=== PATIENT | male | born 1940 | race Hispanic/Latino ===

== ENCOUNTER 2016-11-09 07:07 | Day surgery (SDC) | payer BC, MEDICARE ==
[2016-11-02 14:35] VITALS: BMI 30.1
--- NOTE | 2016-11-07 04:13 | HP ---
REASON FOR ADMISSION: Left heart cath with possible angioplasty. Abnormal stress test dated 10/29/2014. BRIEF CLINICAL HISTORY: This is a 74-year-old male with past medical history significant for CVA, hypertension, had abnormal stress test dated 10/14/2016 and scheduled elective cardiac cath with possible angioplasty. PAST MEDICAL HISTORY: Significant for hypertension, hyperlipidemia, lung CA in the past, history of coronary artery disease, status post PTCA of RCA with FRANCHESCA on 10/29/2014. PREVIOUS CARDIAC WORKUP: As follows; the patient had a stress test on 10/14/2016 that was Lexiscan that showed technical difficult studies, SPECT scan, myocardial perfusion study, ejection fraction reported as 60% fixed inferior defect probably secondary to diaphragmatic attenuation or previous injury. Partially reversible apical defect suggestive of ischemia. In comparison to the last study dated 10/10/2014, apical defect appears more prominent, and the inferior defect appears more fixed in the current study. The patient had a cardiac catheterization on 10/10/2014 with a cardiac catheterization and subsequently PTCA of RCA was done; 80% stenosis noted in the RCA at that time; circumflex had 50% stenosis, LAD with 50% stenosis, and preserved LV function ejection fraction of 65%. CURRENT MEDICATION: The patient is taking hydrochlorothiazide, amlodipine, potassium chloride, Zetia, clopidogrel, aspirin, and simvastatin 20 mg daily. ALLERGIES: NO KNOWN DRUG ALLERGIES. REVIEW OF SYSTEMS: As per HPI. PHYSICAL EXAMINATION: VITAL SIGNS: As follows; temperature afebrile, heart rate 60, and blood pressure 140/80. HEENT: PERRLA. Extraocular muscles intact. NECK: Supple. No carotid bruits. No thyromegaly. CHEST: Clear to auscultation. HEART: S1 and S2 regular. ABDOMEN: Soft. EXTREMITIES: Clubbing and cyanosis negative. LABORATORY DATA: EKG normal sinus. Blood workup pending. IMPRESSION: History of percutaneous transluminal coronary angioplasty of right coronary artery on 10/29/2014, abnormal stress test, inferior wall ischemia, hypertension, hyperlipidemia, and diabetes. RECOMMENDATIONS: We will do cardiac cath. We will load with Plavix and aspirin. We will do the basic blood workup. If blood workup has been normal and renal function is stable, we will proceed for cardiac catheterization. Further recommendation after cardiac catheterization. Arleth Zamora MD
[2016-11-09] MEDS ORDERED: Midazolam 2 MG/2 ML VIAL ONE (07:37)
[2016-11-09] MEDS ORDERED: Iodixanol 320 MG/ML 200 ML BOTTLE IV ONE (07:38)
[2016-11-09] MEDS ORDERED: Nitroglycerin 50mg in D5W 50 MG/250 ML BOTTLE IV ONE (07:38)
[2016-11-09 08:07] VITALS: O2SAT 97
[2016-11-09 08:18] LABS: BASO # 0.02 K/mm3 (0.0-2.0); BASO % 0.3 % (0.0-3.0); EOS # 0.1 (0.0-0.7); EOS % 0.8 % (1.5-5.0); GRAN # 2.87 (1.4-6.5); GRAN % 47.6 % (50.0-68.0); HEMATOCRIT 39.9 % (42.0-52.0); LYMPH # 2.3 (1.2-3.4); LYMPH % 37.5 % (22.0-35.0); MEAN CELL VOLUME 89.5 fl (80.0-105.0); MEAN CORPUSCULAR HGB CONC 33.6 g/dl (31.0-37.0); MEAN PLATELET VOLUME 10.9 fl (7.0-11.0); MONO # 0.8 (0.1-0.6); MONO % 13.8 % (1.0-6.0); RED CELL DISTRIBUTION WIDTH 13.9 % (11.5-14.5)
[2016-11-09 08:19] LABS: BLOOD UREA NITROGEN 17 mg/dL (7-21); CALCIUM 9.5 mg/dL (8.4-10.5); CARBON DIOXIDE 33 mmol/L (21-33); CHLORIDE 99 mmol/L (98-107); CHOLESTEROL 145 mg/dL (130-200); GFR AFRICAN-AMERICAN > 60; GLUCOSE,RANDOM 116 mg/dL (70-110); SODIUM 143 mmol/L (132-148)
[2016-11-09 08:25] LABS: INR 1.03 (0.93-1.08); PARTIAL THROMBOPLASTIN TIME 28.1 Seconds (23.7-30.8)
[2016-11-09] MEDS ORDERED: Iohexol 350mgl/ml 50 ML ONE (08:40)
[2016-11-09] MEDS ORDERED: Lidocaine 2% Inj (20ml) ONE (09:21)
[2016-11-09] MEDS ORDERED: Eptifibatide 20 mg/10mL Inj IVP ONE (09:47)
[2016-11-09] MEDS ORDERED: Sodium Chloride 0.9% 1,000 ML IV SCH (10:30)
[2016-11-09 12:35] VITALS: RESP 18
[2016-11-09] MEDS ORDERED: Potassium Chloride 20 mEq ER Tab PO ONE (13:00)
[2016-11-09 14:09] LABS: BASO # 0.01 K/mm3 (0.0-2.0); BASO % 0.2 % (0.0-3.0); EOS # 0.1 (0.0-0.7); EOS % 0.8 % (1.5-5.0); GRAN # 2.87 (1.4-6.5); GRAN % 48.7 % (50.0-68.0); HEMATOCRIT 36.5 % (42.0-52.0); LYMPH # 2.2 (1.2-3.4); LYMPH % 37.9 % (22.0-35.0); MEAN CELL VOLUME 88.8 fl (80.0-105.0); MEAN CORPUSCULAR HEMOGLOBIN 29.9 pg (25.0-35.0); MEAN CORPUSCULAR HGB CONC 33.7 g/dl (31.0-37.0); MEAN PLATELET VOLUME 10.9 fl (7.0-11.0); MONO # 0.7 (0.1-0.6); MONO % 12.4 % (1.0-6.0); RED CELL DISTRIBUTION WIDTH 13.9 % (11.5-14.5); WHITE BLOOD COUNT 5.9 10^3/ul (4.5-11.0)
[2016-11-09 14:16] LABS: BLOOD UREA NITROGEN 15 mg/dL (7-21); CALCIUM 8.8 mg/dL (8.4-10.5); CARBON DIOXIDE 31 mmol/L (21-33); CHLORIDE 99 mmol/L (98-107); GFR AFRICAN-AMERICAN > 60; GLUCOSE,RANDOM 148 mg/dL (70-110); POTASSIUM 3.1 mmol/L (3.6-5.0); SODIUM 140 mmol/L (132-148)
[2016-11-09 14:19] VITALS: TEMP 98
[2016-11-09] MEDS ORDERED: Bacitracin 500 Units/gm Oint Foilpak UD ONE (14:23)
[2016-11-09 16:23] VITALS: BP 126/63; PULSE 64
--- NOTE | 2016-11-10 09:44 | CARD ---
APPROVED REPORT EKG Measurement Heart [id number] <Conclusion> Normal sinus rhythm Possible Inferior infarct, age undetermined Abnormal ECG
--- NOTE | 2016-11-10 09:44 | CARD ---
APPROVED REPORT EKG Measurement Heart [id number] MA [id number] <Conclusion> Normal sinus rhythm with sinus arrhythmia Normal ECG
[2016-11-10] MEDS ORDERED: Potassium Chloride 20 mEq ER Tab PO SCH (10:00)
[2016-11-10] MEDS ORDERED: Non Formulary Medication (Ezetimibe/Simvastatin [Vytorin 10-20 Mg Tablet] 1 TAB) PO SCH (10:00)
--- NOTE | 2016-11-10 19:54 | CARDCATH ---
CARDIAC AUDIT MACHINE OPERATOR PROCEDURE/ANGIOPLASTY PROCEDURE DATE: 11/09/2016 PROCEDURES PERFORMED: 1. Left heart catheterization. 2. Angioplasty of right coronary artery with a drug-eluting stent. REFERRING PHYSICIANS: Dash Perez MD/Arleth Harper MD OPERATIVE DOCTOR: Arleth Zamora MD SILK SPOTTER: Juan Manuel Frances. BRIEF CLINICAL HISTORY: This is a 76-year-old male with a past medical history significant for coronary artery disease, status post PTCA of RCA on 10/29/2014 who had recently abnormal stress test with apical inferior reversible ischemia, so the patient is scheduled for elective cardiac cath and possible angioplasty. PROCEDURE: The patient was brought to construction craft laborer, prepped and draped in standard sterile fashion. Left radial artery was accessed with Jose, then radial sheath was applied, then left and right Jose catheter is patent and use of coronary angiography. FINDINGS: As follows: Left main essentially free of significant disease with no flow obstructive stenosis noted. Bifurcating to LAD and circumflex. LAD showed luminal irregularity, but no flow obstructive stenosis noted except mid LAD has a 40%-50% stenosis that gives multiple diagonal, 1 diagonal and 2 branches. Circumflex is a moderate caliber vessels and very distally after the taking of OM2 of 40%-50% stenosis noted. Right coronary artery is dominant large caliber vessel and a stent noted proximally with 30-40 5 stenosis, and mid RCA has 90% stenosis noted. LV gram: done EF-55-60%, EDP-20 mm of Hg. In view of above, PTCA of right coronary artery was contemplated and 1500 more heparin was given and then double bolus was given and a Jose right catheter 3.5 was taken to engage the coronary. The loose wire was taken to cross the lesion and then [place] balloon 2 mm in diameter and 10 mm in length was taken and deployed at 10 atmosphere. After this, drug-eluting stent 3.0, 18 was taken and deployed at 14 atmosphere. After this, post coronary dilatation, 3.25 mm [place] was taken 8 mm in length and inflated up to 14 atmosphere for post stent deployment dilatation, with reduction of stenosis from 95% to 0%, ACTwas found to be 265 seconds. The patient tolerated the procedure well and returned to floor in stable condition. In summary, following procedure was done: 1. Complete left heart catheterization. 2. Deployment of drug-eluting stent in RCA with a preprocedure 95% stenosis and FRIDA-II flow. Postprocedure, FRIDA-III flow reduction stenosis to 0%. Drug-eluting was deployed. PLAN: Continue aspirin, Plavix and Atorvastatin for 1 year in addition to the previous medication. Dictation was done in [employer] as [employer] system is down Arleth Zamora MD cc: MD Dash Larson MD MTDDavid
== END 2016-11-09 17:06 | disposition home or self-care (01) ==
LOC: CATH 07:07 → 2RSO 10:31 → CATH 17:06
PROVIDERS: ATTEND Internal Medicine Cardiovascular Disease
DX: I25.10 Atherosclerotic heart disease of native coronary artery without angina pectoris (principal); R94.39 Abnormal result of other cardiovascular function study; Z95.5 Presence of coronary angioplasty implant and graft; I10 Essential (primary) hypertension; E78.5 Hyperlipidemia, unspecified; Z85.118 Personal history of other malignant neoplasm of bronchus and lung; E11.9 Type 2 diabetes mellitus without complications
CPT/HCPCS: 36415; 80048; 80061; 82948; 85025; 85175; 85610; 85730; 86850; 86900; 93005; 93458; 99152; 99153; C1725 ×2; C1769 ×2; C1874; C1887 ×2; C9600; J1327; J1644 ×2; J1940; J2250; J3010; J7040 ×2; Q9967

== ENCOUNTER 2017-03-11 06:28 | Day surgery (SDC) | payer MEDICARE, BC ==
[2017-03-08 16:04] VITALS: BMI 29.9
[2017-03-11 07:11] VITALS: RESP 18; TEMP 98.3; O2SAT 95
[2017-03-11 07:13] LABS: BASO # 0.02 K/mm3 (0.0-2.0); BASO % 0.4 % (0.0-3.0); EOS # 0.1 (0.0-0.7); EOS % 1.3 % (1.5-5.0); GRAN # 2.39 (1.4-6.5); GRAN % 45.1 % (50.0-68.0); HEMOGLOBIN 13.1 g/dL (14.0-18.0); LYMPH # 2.2 (1.2-3.4); LYMPH % 41.5 % (22.0-35.0); MEAN CELL VOLUME 89.6 fl (80.0-105.0); MEAN CORPUSCULAR HEMOGLOBIN 29.6 pg (25.0-35.0); MEAN PLATELET VOLUME 11.3 fl (7.0-11.0); MONO # 0.6 (0.1-0.6); MONO % 11.7 % (1.0-6.0); RBC 4.43 10^6/uL (3.5-6.1); RED CELL DISTRIBUTION WIDTH 14.1 % (11.5-14.5); WHITE BLOOD COUNT 5.3 10^3/ul (4.5-11.0)
[2017-03-11 07:21] LABS: INR 0.98 (0.93-1.08); PARTIAL THROMBOPLASTIN TIME 31.2 Seconds (25.1-36.5); PROTHROMBIN TIME 11.3 SECONDS (9.4-12.5)
[2017-03-11 07:42] LABS: BLOOD UREA NITROGEN 20 mg/dL (7-21); CALCIUM 9.9 mg/dL (8.4-10.5); GFR AFRICAN-AMERICAN > 60; GFR NON-AFRICAN AMERICAN > 60; HDL CHOLESTEROL 43 mg/dL (29-60)
[2017-03-11 07:51] LABS: LDL CHOLESTEROL 78 mg/dL (0-129)
[2017-03-11] MEDS ORDERED: Lidocaine 2% Inj (20ml) ONE (07:54)
[2017-03-11 09:26] VITALS: BP 163/78
[2017-03-11 09:49] VITALS: PULSE 63
--- NOTE | 2017-03-11 09:49 | HP ---
REASON FOR ADMISSION: Admitted for implantation of loop recorder. BRIEF CLINICAL HISTORY: This 76-year-old male with past medical history significant for PTCA of CAD, hypertension, hyperlipidemia, history of significant CVA, who had prior history of PTCA, who admitted with CVA. Seen by Neurologist, Suggested loop recorder to rule out occult atrial fibrillation. The patient is admitted for loop recorder implantation. As Neuro workup shows multiple area MRI contrast shows infarct, so Cardiology consult was called for implantation of loop recorder to rule out occult AFib, cryptogenic CVA. Previous cardiac workup as follows: The patient has stress test on 10/14/2016 with Lexiscan which shows abnormal stress test, history of ischemia, further the patient had a cardiac catheterization dated 11/09/2016, followed by angioplasty of the right coronary artery with drug-eluting stent. At that time, the cardiac catheterization revealed left main essentially free of significant disease, bifurcate LAD and circumflex, LAD shows luminal irregularity, but no flow obstructive stenosis noted. Except distal LAD has 40 to 50% stenosis noted. Given multiple diagonal 1 and diagonal 2 branches. Circumflex is a moderate caliber vessels, very distal 40 to 50% stenosis noted. Right coronary artery is dominant, last caliber vessels, stent noted in proximal with 45% stenosis, mid RCA has 90% stenosis. The patient underwent PTCA with drug-eluting stent to mid RCA. LV gram at that time shows ejection fraction is 55%. EDP was in the range of 20. MRI of the brain recently 02/22/2017 shows acute infarct in the inferior thalamus dated 02/22/2017. CURRENT MEDICATIONS: The patient is taking metformin, hydrochlorothiazide, amlodipine, potassium, levothyroxine, Plavix and aspirin. REVIEW OF SYSTEMS: As per HPI. PHYSICAL EXAMINATION VITAL SIGNS: Temperature afebrile, heart rate 60, blood pressure 140/80. Height of the patient is 5 feet 10 inches, weight of the patient is 209 pounds. Body mass index 30 kg/m2. HEENT: PERRLA intact. NECK: Supple. No carotid bruit or thyromegaly. CHEST: Clear to auscultation. HEART: S1 and S2 regular. ABDOMEN: Soft. EXTREMITIES: Clubbing and cyanosis negative. IMPRESSION: Cerebrovascular accident, rule out paroxysmal atrial fibrillation, cryptogenic stroke, hypertension, hyperlipidemia, history of coronary artery disease, history of multiple stent in the past, history of percutaneous transluminal coronary angioplasty of right coronary artery in 2014, history of most recently percutaneous transluminal coronary angioplasty of mid right coronary artery on 11/09/2016. RECOMMENDATIONS: We will put the loop recorder. Further recommendations after loop recorder and we will follow with you. Thank you Dr. Perez and Dr. Harper for providing us the opportunity in taking care of the patient, Mark Brewster. Arleth Zamora MD ISAK
--- NOTE | 2017-03-11 19:56 | CARDCATH ---
PROCEDURE DATE: 03/11/2017 TYPE OF PROCEDURE: Implantation of loop recorder (LINQ Reveal Medtronic). INDICATION FOR PROCEDURE: Cryptogenic stroke. OPERATIVE DOCTOR: Arleth Zamora MD. TELEVISION PRODUCER: Terry Charlton, qc lab technician. BRIEF CLINICAL HISTORY: This is a 76-year-old male with a past medical history significant for coronary artery disease, status post PTCA in the past who was recently admitted with TIA, CVA type of symptoms. HI shows infarct, suggested by neurologist, because no etiology was found, because of the cryptogenic stroke, suggested to do loop implantation to asses whether the patient is having paroxysmal atrial fibrillation, so patient can be long-time anticoagulated. PROCEDURE: The patient was brought to the equipment operator/laborer, draped in a sterile standard fashion. Risks, benefits, and alternatives were explained to the patient and agreed. Left side of the chest was prepped and under fourth costal space, 1.5 cm away from the midline, local anesthesia was given and with blade #11 Bard-Per knife a small incision was done, pocket was created and the LINQ (Medtronic Reveal) was injected. Puncture site was closed with a Dermabond. Patient tolerated the procedure well. Returned to the floor in stable condition. No sedation was given. Only local anesthesia was given. Arrangement has been made for transtelephonic recording with Dr. Nicole Thao's service at [facility], also patient's and patient was given education for taking care on the LINQ as well as for monitoring. Thank you Dr. Harper and Dr. Perez for providing the opportunity to taking care of Mark Brewster. Arleth Zamora MD cc: MD Arleth Corona MD
== END 2017-03-11 10:00 | disposition home or self-care (01) ==
LOC: SDSVAS 06:28
PROVIDERS: ATTEND Internal Medicine Cardiovascular Disease
DX: I63.9 Cerebral infarction, unspecified (principal); I25.10 Atherosclerotic heart disease of native coronary artery without angina pectoris; E78.5 Hyperlipidemia, unspecified; I10 Essential (primary) hypertension; Z86.73 Personal history of transient ischemic attack (TIA), and cerebral infarction without residual deficits; Z95.5 Presence of coronary angioplasty implant and graft
CPT/HCPCS: 33282; 36415; 80048; 80061; 85025; 85610; 85730; 86850; 86900; C1764

== ENCOUNTER → 2017-09-06 | Day surgery (SDC) | payer MEDICARE, BC ==
[2017-09-02 10:12] VITALS: BMI 30.7
[2017-09-06 07:57] VITALS: BP 157/71; PULSE 64; RESP 20; TEMP 97.6; O2SAT 95
[2017-09-06 08:11] LABS: BASO # 0.02 K/mm3 (0.0-2.0); BASO % 0.3 % (0.0-3.0); EOS % 0.6 % (1.5-5.0); GRAN # 2.83 (1.4-6.5); GRAN % 40.1 % (50.0-68.0); HEMOGLOBIN 13.3 g/dL (14.0-18.0); LYMPH # 3.3 (1.2-3.4); LYMPH % 46.9 % (22.0-35.0); MEAN CORPUSCULAR HEMOGLOBIN 30.1 pg (25.0-35.0); MEAN PLATELET VOLUME 10.8 fl (7.0-11.0); MONO # 0.9 (0.1-0.6); MONO % 12.1 % (1.0-6.0); RBC 4.42 10^6/uL (3.5-6.1); RED CELL DISTRIBUTION WIDTH 14.2 % (11.5-14.5)
[2017-09-06 08:20] LABS: BLOOD UREA NITROGEN 16 mg/dL (7-21); CALCIUM 9.8 mg/dL (8.4-10.5); GFR AFRICAN-AMERICAN > 60; GFR NON-AFRICAN AMERICAN > 60; HDL CHOLESTEROL 47 mg/dL (29-60)
[2017-09-06 08:30] LABS: LDL CHOLESTEROL 76 mg/dL (0-129)
[2017-09-06 08:32] LABS: INR 1.01 (0.93-1.08); PARTIAL THROMBOPLASTIN TIME 26.3 Seconds (25.1-36.5); PROTHROMBIN TIME 11.6 SECONDS (9.4-12.5)
--- NOTE | 2017-09-06 11:11 | CARD ---
APPROVED REPORT Date of service: 09/06/2017 EKG Measurement Heart [id number] NM [id number] <Conclusion> Sinus rhythm with premature atrial complexes Otherwise normal ECG
--- NOTE | 2017-09-06 13:38 | DS ---
BRIEF CLINICAL HISTORY: This is a 77-year-old male with past medical history significant for loop recorder, history of coronary artery disease, admitted for possible implantation for pacemaker. On site, interrogation of loop recorder was done. Due to undersensing, no real or true pause of atrial fibrillation noted. Patient had low QRS complex that was detected by the transtelephonic pacemaker as multiple pauses, but actually the patient has normal sinus, no arrhythmia noted. So, pacemaker was canceled and patient is going home. Continue current medications including aspirin, Plavix, metformin and amlodipine, all previous medications. We will re-interrogate loop recorder in a month. For now, pacemaker is canceled and postponed as it is not warranted. Arleth Zamora MD
== END | disposition home or self-care (01) ==
LOC: SDSVAS 07:12
PROVIDERS: ATTEND Internal Medicine Cardiovascular Disease
DX: Z45.09 Encounter for adjustment and management of other cardiac device (principal); I25.10 Atherosclerotic heart disease of native coronary artery without angina pectoris; I10 Essential (primary) hypertension; E11.9 Type 2 diabetes mellitus without complications; E07.9 Disorder of thyroid, unspecified; F17.200 Nicotine dependence, unspecified, uncomplicated; Z79.02 Long term (current) use of antithrombotics/antiplatelets; Z53.8 Procedure and treatment not carried out for other reasons

== ENCOUNTER 2018-04-25 07:51 | Outpatient (CLI) | payer MEDICARE, BC | END 2018-04-25 07:52 | disposition home or self-care (01) | LOC: CARDIO 07:51 ==

== ENCOUNTER 2018-05-10 12:40 | Outpatient (CLI) | payer MEDICARE, BC | END 2018-05-10 12:41 | disposition home or self-care (01) | LOC: RAD 12:40 | DX: C34.90 Malignant neoplasm of unspecified part of unspecified bronchus or lung (principal) ==

== ENCOUNTER 2018-05-16 08:30 | Outpatient (CLI) | payer MEDICARE, BC | END 2018-05-16 08:31 | disposition home or self-care (01) | LOC: RAD 08:30 ==